=== PATIENT | female | born 1985 | race Two or more races ===

== ENCOUNTER → 2024-01-28 | Outpatient (CLI) | payer MEDICAID ==
[2024-01-28 09:43] LABS: Basophils # (auto) 0 10 ^3/uL (0-0.2); Basophils % (auto) 0.8 % (0.0-2.0); Eosinophils # (auto) 0.1 10 ^3/uL (0-0.8); Eosinophils % (auto) 1.9 % (0.0-7.0); Hematocrit 39.5 % (36.0-46.0); Hemoglobin 13.4 g/dL (12.2-16.2); Lymphocytes # (auto) 1.8 10 ^3/uL (0.4-5.4); Lymphocytes % (auto) 34.6 % (10.0-50.0); Mean Corpuscular Hemoglobin 30.4 pg (28.0-32.0); Mean Corpuscular Hgb Conc. 33.9 g/dL (32.0-36.0); Mean Corpuscular Volume 89.7 fL (80.0-100.0); Monocytes # (auto) 0.4 10 ^3/uL (0-1.3); Monocytes % (auto) 6.7 % (0.0-12.0); Platelet Count (auto) 286 10^3/uL (140-450); Red Blood Cells 4.41 10^6/uL (4.0-5.20); Red Cell Distribution Width 13.2 % (11.8-14.3); White Blood Cell 5.3 10^3/uL (4.4-10.8)
[2024-01-28 10:06] LABS: Thyroid Stimulating Hormone 1.29 uIU/mL (0.55-4.78)
[2024-01-28 10:10] LABS: Beta HCG, Quantitative 1.8 mIU/mL (1.5-4.2)
[2024-01-28 10:50] LABS: Follicle Stimulating Hormone 20.67 IU/L (SEE BELOW); Leuteinizing Hormone 75.2 IU/L
== END | disposition home or self-care (01) ==
LOC: LAB 09:05
PROVIDERS: ATTEND Obstetrics & Gynecology
DX: N92.6 Irregular menstruation, unspecified (principal)
CPT/HCPCS: 36415; 82306; 82670; 83001; 83002; 84403; 84443; 84702; 85025

== ENCOUNTER 2024-12-22 09:52 | Outpatient (CLI) | payer MEDICAID ==
[2024-12-22 10:28] LABS: Hematocrit 37.0 % (36.0-46.0); Hemoglobin 12.4 g/dL (12.2-16.2); Mean Corpuscular Hemoglobin 29.5 pg (28.0-32.0); Mean Corpuscular Volume 88.5 fL (80.0-100.0); Nucleated Red Blood Cells % 0.1 %
[2024-12-22 11:04] LABS: Follicle Stimulating Hormone 11.76 IU/L (SEE BELOW)
== END 2024-12-22 17:00 | disposition home or self-care (01) ==
LOC: LAB 09:52
PROVIDERS: ATTEND Obstetrics & Gynecology
DX: N64.52 Nipple discharge (principal)
CPT/HCPCS: 36415; 82670; 83001; 83002; 84146; 84403; 84443; 85025